=== PATIENT | female | born 1990 | race Hispanic/Latino ===

== ENCOUNTER 2020-04-16 06:07 | Emergency (ER) | payer SELFPAY ==
[2020-04-16 06:30] VITALS: BP 132/98
[2020-04-16] MEDS ORDERED: LORazepam 1 MG TAB PO ONE (08:38)
--- NOTE | 2020-04-16 08:43 | Emergency Department Report ---
ED Psych HPI - General Chief Complaint: Medical Clearance Stated Complaint: HEARING VOICES/MED REFILL/MH EVAL Time Seen by Provider: 04/16/20 08:29 Source: patient, EMS Mode of arrival: Ambulatory - History of Present Illness Initial Comments: 29-year-old female who states "I am going into the manic phase". She has a bipolar disorder/schizophrenia. She states she is taking her Zoloft but is out of her Zyprexa and Xanax. She states that she goes to [facility] 3 months for her visit and medication refill. She states that she is due to go. Despite being out of her medicine, she did not attempt to contact her mental health provider. She states that she is hearing voices at times but there is no command hallucination, no suicidal ideation and no violent thoughts. The triage note states that her new did not want her to take her medication. However, the patient is denying that that is the problem now and that she is just "in the manic phase" and out of her medicine. She denies being in any danger from her . MD Complaint: other -: days(s) Associated Psychiatric Symptoms: racing thoughts History of same: Yes Quality: intermittent Improves With: medication Worsens With: none Context: not taking psychiatric Associated Symptoms: denies other symptoms Treatments Prior to Arrival: none - Related Data Previous Rx's Medication Instructions Recorded Last Taken Type OLANZapine [Zyprexa] 15 mg PO DAILY #30 tablet 04/16/20 Unknown Rx Allergies Allergy/AdvReac Type Severity Reaction Status Date / Time No Known Allergies Allergy Unverified 04/16/20 06:17 ED Review of Systems ROS: Stated complaint: HEARING VOICES/MED REFILL/MH EVAL Other details as noted in HPI Constitutional: denies: chills, fever Eyes: denies: eye pain, eye discharge, vision change ENT: denies: ear pain, throat pain Respiratory: denies: cough, shortness of breath Cardiovascular: denies: chest pain, palpitations Endocrine: no symptoms reported Gastrointestinal: denies: abdominal pain, nausea, diarrhea Genitourinary: denies: urgency, dysuria, discharge Musculoskeletal: denies: back pain, arthralgia Skin: denies: rash, lesions Neurological: denies: headache, weakness, paresthesias Psychiatric: denies: anxiety, depression Hematological/Lymphatic: denies: easy bleeding, easy bruising ED Past Medical Hx - Past Medical History Previous Medical History?: Yes Hx Psychiatric Treatment: Yes (Bipolar, Schizophrenic) - Surgical History Past Surgical History?: Yes Additional Surgical History: Csection x 2 - Social History Substance Use Type: None - Medications Home Medications: Home Medications Medication Instructions Recorded Confirmed Last Taken Type OLANZapine [Zyprexa] 15 mg PO DAILY #30 tablet 04/16/20 Unknown Rx ED Physical Exam - General Limitations: No Limitations General appearance: alert, in no apparent distress - Head Head exam: Present: atraumatic, normocephalic - Eye Eye exam: Present: normal appearance. Absent: scleral icterus - ENT ENT exam: Present: mucous membranes moist - Neck Neck exam: Present: normal inspection - Respiratory Respiratory exam: Present: normal lung sounds bilaterally. Absent: respiratory distress - Cardiovascular Cardiovascular Exam: Present: regular rate, normal rhythm. Absent: systolic murmur, diastolic murmur, rubs, gallop - GI/Abdominal GI/Abdominal exam: Present: soft, normal bowel sounds. Absent: distended, tenderness, guarding - Extremities Exam Extremities exam: Present: normal inspection - Back Exam Back exam: Present: normal inspection - Neurological Exam Neurological exam: Present: alert, oriented X3, CN II-XII intact. Absent: motor sensory deficit - Psychiatric Psychiatric exam: Present: normal affect, manic (At least hypomanic) - Skin Skin exam: Present: warm, dry, intact, normal color. Absent: rash ED Course Vital Signs 04/16/20 06:29 Temperature 98.3 F Pulse Rate 105 H Respiratory 20 Rate Blood Pressure 132/98 [Left] O2 Sat by Pulse 98 Oximetry - Reevaluation(s) Reevaluation #1: I am going to give the patient her usual dose of Zyprexa and a milligram of Ativan. I will discuss her case with the mental health provider. It does not appear she is meeting any criteria for hospitalization or further medical screening. We will confirm that with the mental health provider. It would appear that she may be a candidate for outpatient Rx and bridge to a near-term mental health visit. 04/16/20 08:42 Reevaluation #2: Patient admitted to substance abuse to the mental health counselor. She was interviewed by to mental health staff members. They tell me she does not meet criteria for involuntary confinement. I came to the same conclusion. She is referred to her primary care provider. I will give her a prescription for Z yprexa. In the face of substance abuse, I will not prescribe benzodiazepines. She was noncompliant here while under observation after the Zyprexa dose. 04/16/20 12:18 Critical care attestation.: If time is entered above; I have spent that time in minutes in the direct care of this critically ill patient, excluding procedure time. ED Disposition Clinical Impression: Bipolar disorder Qualifiers: Active/Remission status: in partial remission Most recent bipolar episode type: hypomanic Qualified Code(s): F31.71 - Bipolar disorder, in partial remission, most recent episode hypomanic Disposition: DC-01 TO HOME OR SELFCARE Is pt being admited?: No Condition: Stable Instructions: Chyna, Bipolar 2 Disorder, Mixed Bipolar Disorder, Bipolar 1 Disorder Additional Instructions: In case of an emergency, please contact the following numbers: [place] Crisis and Access Line: Number: Crisis Text Line: (Text START) Number: [phone] Suicide Prevention Line: Number: Emergency Number: 911 SUBSTANCE ABUSE PROGRAMS: [facility]: Location: [place], [place] [facility]! Address: [address] [place] [address] [facility] Recovery: Address: [address] [place] [address] [facility] Rehabilitation: Address: [address] [place] [address] [facility] Community: Address: [address] [place] [address] [facility] Address: [address] [place] [address]. Please contact above numbers to attempt placement into free based program. Medicaid Programs: [facility]: Address: [address] [place] [address] [facility]: Address: [address] [place] [address] [employer] [facility] Crisis Line: Community Office: [facility] [address] [place] [address] [facility] crisis line: 24-hour hotline: [phone]) 09-XKZVS (21091) [facility] [address], [address] [place], [place] [facility] [place] [address] Main Client Number: Crisis Line: [facility] [place] [address] 24 Hour Crisis Line: [facility] [place] [address] Main Client Number: Crisis Line 05/10/TTY: [facility] [address] [place] [address] Main Client Number: Toll Free Line: Prescriptions: OLANZapine [Zyprexa] 15 mg PO DAILY #30 tablet Referrals: SHANE GUTIERRES MD [Primary Care Provider] - 3-5 Days Time of Disposition: 12:18
--- NOTE | 2020-04-16 11:33 | Consultation ---
History of Present Illness - Reason for Consult Consult date: 04/16/20 Reason for consult: amphetamine dependence - History of Present Psychiatric Illness Jessica Velasquez is a 29y/o female patient with history of bipolar and schizophrenia who presents to the ER verbalizing hallucinations at times and being out of her medications. During my interview with the patient she is a/o x 3. The patient is also manipulative. She is initially on the phone and I reentered her room twice and she continued to talk while I'm standing there. I notified the charge nurse who got her off the phone. The patient says her and her her abusing adderall. She says "I need detox." She says "I'm hungry and need to eat, and I'm tired." She says she was in a sober living but they kicked her out. The patient denies SI/HI. She then starts asking me for xanax and if she can lay down and rest. The patient initially tells me that she was on her medications, then she tells me she was off her medications. She says her ex- has all of her clothes. The patient also states she doesn't have a ride. I informed the patient that she would be given a transportation pass. She say's "but I can't ride a bus like this. I need to eat and sleep." The patient asks if she could get xanax prior to leaving, but the patient was medicated already with lorazepam this morning. She denies hallucinations at present but states she was hearing voices last night. PAST PSYCHIATRIC HISTORY: Diagnoses: bipolar, schizophrenia Suicide attempts or Self-harm behavior: "often" Prior psychiatric hospitalizations: yes Substance Abuse history: amphetamines Previous psychiatric medications tried: zoloft, xanax, adderall, zyprexa Outpatient treatment: yes PAST MEDICAL HISTORY: No significant past medical history Family Psychiatric History: None reported or documented SOCIAL HISTORY Marital Status: Living Arrangements: with spouse Employment Status: Unemployed Access to guns/weapons: Denies Education: High school History of Abuse: None reported Legal History: None reported REVIEW OF SYSTEMS Constitutional: Negative for weight loss ENT: Negative for stridor Respiratory: Negative for cough or hemoptysis All other systems reviewed and are negative MENTAL STATUS EXAMINATION General Appearance and Behavior: Age appropriate, good hygiene, not wearing appropriate clothes, good eye contact, anxious, cooperative with questioning. Cooperation: Participating Mood: "anxious" Affect and affective range: Congruent with stated mood Thought Process: goal directed Thought Content: none Speech: normal tone and pace Intellectual Functioning: Average Suicidal Ideation: Denies Homicidal Ideation: Denies Impulse Control: Impaired Insight and Judgment: Limited insight and judgment Memory: Normal Attention: Divided attention impaired Orientation: Alert, oriented, Assessment and Plan Amphetamine Dependence Substance Induced Mood Disorder Current Visit: Yes Status: Acute Treatment Plan Give the patient transportation pass Medical: per primary Disposition: Do not recommend acute inpatient treatment. The patient understands that if suicidal thoughts are to arise she is to seek immediate assistance including 911, ER and crisis hotline The toaster operator to give the patient referrals for outpatient services, medication assistance, CBT and drug rehab services The patient to abstain from all illicit drug use She is to follow up with outpatient psych in 7 to 14 days upon discharge Will sign off. Thank you for this consult Case staffed with Dr. Loyola Medications and Allergies Allergies Allergy/AdvReac Type Severity Reaction Status Date / Time No Known Allergies Allergy Unverified 04/16/20 06:17 Mental Status Exam - Vital signs Last Vital Signs Temp 98.3 F 04/16/20 06:29 Pulse 105 H 04/16/20 06:29 Resp 20 04/16/20 06:29 BP 132/98 04/16/20 06:29 Pulse Ox 98 04/16/20 06:29 Results All other labs normal.
== END 2020-04-16 12:51 | disposition home or self-care (01) ==
LOC: ED 06:07
DX: F25.0 Schizoaffective disorder, bipolar type (principal); Z79.899 Other long term (current) drug therapy; Z98.890 Other specified postprocedural states

== ENCOUNTER 2020-09-05 09:06 | Emergency (ER) | payer SELFPAY | END 2020-09-05 09:10 | disposition left against medical advice (07) | LOC: ED 09:06 ==

== ENCOUNTER 2020-09-07 06:06 | Emergency (ER) | payer SELFPAY ==
[2020-09-07 07:18] VITALS: BP 135/93
== END 2020-09-07 08:10 | disposition left against medical advice (07) ==
LOC: ED 06:06
DX: R06.00 Dyspnea, unspecified (principal); Z53.21 Procedure and treatment not carried out due to patient leaving prior to being seen by health care provider